=== PATIENT | male | born 1990 | race Two or more races ===

== ENCOUNTER 2016-07-06 08:59 | Day surgery (SDC) | payer OTHER, MEDICAID ==
[2016-07-06] MEDS ORDERED: CEFAZOLIN SODIUM 2 GRAM PREMIX 100 ML IV PRN (09:15)
[2016-07-06] MEDS ORDERED: LACTATED RINGERS 1,000 ML ONE (09:29)
[2016-07-06] MEDS ORDERED: IV START KIT ONE (09:29)
[2016-07-06] MEDS ORDERED: CEFAZOLIN SODIUM 2 GRAM PREMIX 100 ML IV ONE (09:31)
[2016-07-06] MEDS ORDERED: PROPOFOL 20 ML IV ONE (10:09)
[2016-07-06] MEDS ORDERED: MIDAZOLAM HCL 1 MG/ML 2ML VIAL ONE (10:09)
[2016-07-06] MEDS ORDERED: DEXAMETHASONE SOD PHOS 4 MG/1 ML VIAL ONE (10:09)
[2016-07-06] MEDS ORDERED: ONDANSETRON 4 MG/2ML 2 ML VIAL ONE (10:09)
[2016-07-06] MEDS ORDERED: FENTANYL 100 MCG/2 ML VIAL ONE ×3 (10:09→11:41)
[2016-07-06] MEDS ORDERED: BUPIVACAINE 0.5% W/EPI SDV 30 ML VIAL ONE (10:46)
[2016-07-06] MEDS ORDERED: HYDRALAZINE HCL 20 MG/1 ML VIAL IV PRN (11:18)
[2016-07-06] MEDS ORDERED: NALOXONE HCL 0.4 MG/ML VIAL IV PRN (11:18)
[2016-07-06] MEDS ORDERED: PROMETHAZINE HCL 25 MG/ML VIAL IM PRN (11:18)
[2016-07-06] MEDS ORDERED: ONDANSETRON 4 MG/2ML 2 ML VIAL IV PRN ×2 (11:18→13:18)
[2016-07-06] MEDS ORDERED: HYDROMORPHONE HCL 1 MG/ML SYRINGE IV PRN ×2 (11:18→13:18)
[2016-07-06] MEDS ORDERED: MEPERIDINE 25 MG/ML SYRINGE IV PRN (11:18)
[2016-07-06] MEDS ORDERED: FENTANYL 100 MCG/2 ML VIAL IV PRN (11:18)
[2016-07-06] MEDS ORDERED: ATROPINE SULFATE 0.4 MG/1 ML VIAL IV PRN (11:18)
[2016-07-06] MEDS ORDERED: LABETALOL HCL 5 MG/ML 20ML VIAL IV PRN (11:18)
[2016-07-06] MEDS ORDERED: KETOROLAC TROMETHAMINE 30 MG/ML 1 ML VIAL ONE (11:24)
[2016-07-06] MEDS ORDERED: LACTATED RINGERS 1,000 ML IV SCH ×2 (11:30→13:18)
[2016-07-06] MEDS ORDERED: HYDROMORPHONE HCL 2 MG/ML SYRINGE ONE (12:15)
--- NOTE | 2016-07-06 12:51 | PCMBPN ---
Brief Post Op Note: Date of Procedure: 07/06/16 Start Time: 1100 Preoperative Diagnosis: 1. left knee posttraumatic arthritis, medial meniscus tear, loose bodies Postoperative Diagnosis: 1. Same Procedure: left knee arthroscopy, chondroplasty, microfracture, loose body removal, and partial medial meniscectomy Surgeon: Miky Lebron MD Assist: Antwan Camargo PA-C Anesthesia: Chip Espinosa Findings: extensive grade IV cartilage loss over trochlea, anterior lateral femoral condyle, and distal medial femoral condyle Condition: stable to PACU Complications: none IV Fluids: 1600 mLs of LR Urine Output: 0 mLs Estimated Blood Loss: 100 mLs Tourniquet Time: 57 min at 250 mm Hg Specimens: none Implants: none Drains: none Miky Lebron MD
[2016-07-06] MEDS ORDERED: OXYCODONE/ACETAMINOPHEN 5/325 MG TABLET PO PRN (13:18)
[2016-07-06] MEDS ORDERED: ACETAMINOPHEN 325 MG TABLET PO PRN (13:18)
[2016-07-06] MEDS ORDERED: DIPHENHYDRAMINE HCL 50 MG/1 ML VIAL IV PRN (13:18)
--- NOTE | 2016-07-06 13:23 | RAD ---
HISTORY: Postop evaluation. COMPARISON: None. TECHNIQUE: two views of Left knee. FINDINGS: Bones: No fracture or dislocation. There has been significant improvement in the patellofemoral osteophytes in comparison to prior study. Findings likely relate to the patient's recent postoperative state. Additionally the posterior probable joint bodies are also absent. Joints: Normal. Soft tissue: Moderate joint effusion. IMPRESSION: Satisfactory postoperative exam.
[2016-07-06] MEDS ORDERED: OXYCODONE/ACETAMINOPHEN 5/325 MG TABLET ONE (14:13)
--- NOTE | 2016-07-07 09:14 | OP ---
Javi DASILVA : 1990 [id number] DATE OF PROCEDURE: July 06, 2016 PREOPERATIVE DIAGNOSES: Left knee posttraumatic arthritis with medial meniscus tear and loose bodies. POSTOPERATIVE DIAGNOSES: Left knee posttraumatic arthritis with medial meniscus tear and loose bodies. PROCEDURE PERFORMED: LEFT KNEE ARTHROSCOPY WITH CHONDROPLASTY AND MICROFRACTURE OF THE MEDIAL FEMORAL CONDYLE, REMOVAL OF LOOSE BODIES AND PARTIAL MEDIAL MENISCECTOMY. SURGEON: Miky Lebron M.D. OPERATIONS RESEARCH ANALYST: Christopher Camargo P.A.-C. ANESTHESIA: Ingris Kim.N.Lorena. SPECIMENS: No material was sent to the laboratory. ESTIMATED BLOOD LOSS: 100 mL FLUIDS REPLACED: 1600 mL of crystalloid. TOURNIQUET TIME: 57 minutes at 250 mmHg. URINE OUTPUT: None. IMPLANTS: None. DRAINS: No drains. INDICATIONS: This is a 25-year-old male who complains of pain and mechanical symptoms in the left knee that have been increasing over time and have not responded to a course of nonoperative measures. Patient has an exam and imaging studies which are consistent with the above. Given failure to improve with nonoperative measures patient was consented for left knee arthroscopy with chondroplasty and microfracture of the medial femoral condyle, removal of loose bodies and partial medial meniscectomy. The risks, benefits and alternatives were discussed at length with that patient and they elected to proceed with surgery. Informed consent was obtained and documented in the chart and the patient was placed on the schedule the first available convenience. DESCRIPTION OF PROCEDURE: The patient was identified in the preoperative holding area where they were marked with an indelible marker by the operating surgeon. Patient was taken to the operating room where they were placed in the supine position the operating room table. A general anesthesia was induced, perioperative antibiotics were administered and a well padded pre-calibrated nonsterile tourniquet was placed on the left upper thigh. Patient was prepped and draped in the usual sterile fashion for surgery. An operative time out was performed and confirmed by all members of the operative team confirming the patient identity, procedure to be performed and the laterally for that procedure. All necessary personnel, equipment and implants were in place and there were no safety concerns. The leg was elevated and exsanguinated using the Esmarch bandage and the tourniquet was inflated to 250 mmHg. A standard lateral portal was created and the 30 degree viewing arthroscope was inserted into the knee. Optics were directed anteromedially and a medial portal was localized and created in a standard fashion. A probe was inserted through this medial portal and used in completion of the diagnostic arthroscopy with the following findings: There were no loose bodies identified in the medial lateral gutters. Medial meniscus had a small tear at the posterior horn. There was also a loose flap of cartilage over the medial femoral condyle. ACL and PCL were intact. There were loose bodies in the lateral compartment and significant wear of the lateral femoral condyle and lateral tibial plateau including full thickness lesions, but nothing that was amenable to microfracture. The patellofemoral joint showed some softening. Arthroscopy in the posterior portion of the knee demonstrated multiple large osseous loose bodies. After completion of diagnostic arthroscopy the probe was exchanged for an arthroscopic biter and this was used to resect back the medial meniscus to a stable rim. This was then exchanged for arthroscopic resector shaver which was used to complete the partial medial meniscectomy. The shaver and Ring curettes were then used to debride back the loose cartilage over the medial femoral condyle and a microfracture was performed using a microfracture awl. Good bleeding was noted from the microfracture sites. The camera was direct it into the posterior fossa of the knee and the large loose bodies were identified. Under arthroscopic visualization and 8mm cannula was placed into the anteromedial knee entering the capsule behind the medial femoral condyle. Using a pituitary rongeur these posterior loose bodies were broken up and were excised in fragments out through the cannula. When we felt that we had appropriately cleaned the posterior portion of the knee. Then we felt that we had addressed the patient's intra-articular pathology and so the camera and instruments and cannula were removed from the knee. The portal sites and posterior medial incision were closed with #4-0 Nylons; 20 mL of 0.5% Marcaine was injected into the knee for perioperative analgesia. A sterile dressing of Xeroform, fluffs, ABDs, web roll and then an JYOTI bandage from ankle to the thigh was applied. The tourniquet was deflated, the drapes were removed. The patient was awakened from anesthesia and extubated in the operating room without difficulty. Patient was transferred to a stretcher and taken postoperatively to the post anesthesia care unit in stable condition. There were no observed intraoperative complications during this procedure. Job [id number] Cc: [facility]
== END 2016-07-06 16:27 | disposition home or self-care (01) ==
LOC: SDC 08:59
PROVIDERS: ATTEND Orthopaedic Surgery
PROC: 0SBD4ZZ Excision of Left Knee Joint, Percutaneous Endoscopic Approach (ICD-10-PCS; principal; 2016-07-06)
PROC: 0SCD4ZZ Extirpation of Matter from Left Knee Joint, Percutaneous Endoscopic Approach (ICD-10-PCS; principal; 2016-07-06)
DX: S83.242A Other tear of medial meniscus, current injury, left knee, initial encounter (principal); M17.32 Unilateral post-traumatic osteoarthritis, left knee; M24.10 Other articular cartilage disorders, unspecified site
CPT/HCPCS: 73560; 29881; J1170; J3010 ×4; J1100; A9270; J1885; J2250; J2405; J7120; J0690